=== PATIENT | male | born 2000 | race Caucasian/White ===

== ENCOUNTER 2018-11-14 23:56 | Emergency (ER) | payer BC ==
[2018-11-15 01:13] LABS: ABS Eosinophils 0.2 10^3/ul (0-0.6); ABS Lymphocytes 1.2 10^3/ul (1.0-4.8); ABS Monocytes 1.1 10^3/ul (0-0.8); ABS Neutrophils 11.1 10^3/ul (1.5-7.7); Eosinophil % 1.8 %; Hematocrit 46 % (42-52); Lymphocyte % 8.9 %; Mean Corpuscular HGB Conc 35 g/dL (31-36); Mean Corpuscular Hemoglobin 30 pg (27-31); Mean Corpuscular Volume 86 fL (80-94); Mean Platelet Volume 9.2 fL (7.4-10.4); Platelet Count 224 10^3/uL (150-450); Red Blood Count 5.27 10^6 /uL (4.18-5.48); Red Cell Distribution Width 13 % (10-15); White Blood Count 13.7 10^3/uL (3.5-10.8)
[2018-11-15 01:18] LABS: INR 1.24 (0.82-1.09)
--- NOTE | 2018-11-15 01:24 | ED ---
Complex/Multi-Sys Presentation - HPI Summary HPI Summary: Patient is a 17 y/o M presenting to ED with complaints of fever, sore throat, cough, headache, neck pain, shaking and chills. Sore throat onset two days ago, 11/12/2018, and progressively worsened after onset. Other Sx onset in the morning of 11/14/2018. Patient reports pain at the back of his neck. He additionally states that the sides of his neck have felt swollen. Some post nasal drip and rhinorrhea is endorsed as well. Patient took ibuprofen this morning, 11/14/2018, which he reports alleviated fever and shaking. Afterwards, he went to class. When he finished classes for the day, he states that Sx returned once more. Patient's grandfather, a doctor, advised the patient to come to the ED for evaluation. He states that JOHNS is "not bad now". Some nausea and decreased appetite are noted. Some SOB is reported as well, but patient attributes this to his asthma. Cough is occasionally productive. Patient had taken ibuprofen at 2230 11/14/18. On triage, pain is rated 3/10. Home medications and allergies are reviewed. - History Of Current Complaint Chief Complaint: EDFever Time Seen by Provider: 11/15/18 01:23 Hx Obtained From: Patient Onset/Duration: Lasting Hours - all Sx except sore throat, Lasting Days - sore throat, Still Present Timing: Constant, Hours - all Sx except sore throat, Days - sore throat Severity Currently: Mild Location: Pain At: - throat, head, neck Character: Typical Headache Aggravating Factor(s): nothing Alleviating Factor(s): nothing Associated Signs And Symptoms: Positive: Headache, SOB, Cough, Nausea, Fever, Other - positive - sore throat, neck pain, shaking, chills, side of neck feels swollen, post nasal drip, rhinorrhea, decreased appetite - Allergies/Home Medications Allergies/Adverse Reactions: Allergies Allergy/AdvReac Type Severity Reaction Status Date / Time No Known Allergies Allergy Verified 11/15/18 01:33 Home Medications: Home Medications Albuterol HFA INHALER* 2 inh INH Q4HR PRN 11/15/18 [History Confirmed 11/15/18] Symbicort 80/4.5 (NF) 2 inh INH BID 11/15/18 [History Confirmed 11/15/18] PMH/Surg Hx/FS Hx/Imm Hx Respiratory History: Reports: Hx Asthma Sensory History: Denies: Hx Legally Blind, Hx Deafness Opthamlomology History: Denies: Hx Legally Blind EENT History: Denies: Hx Deafness Infectious Disease History: No Infectious Disease History: Denies: Traveled Outside the [place] in Last 30 Days - Family History Known Family History: Negative: Cardiac Disease, Hypertension - Social History Alcohol Use: Rare Hx Substance Use: Yes Substance Use Type: Reports: Marijuana Review of Systems Constitutional: Other - positive - shaking Positive: Fever, Chills ENT: Other - post nasal drip Positive: Sore Throat, Nasal Discharge Positive: Shortness Of Breath, Cough Gastrointestinal: Other - positive - decreased appetite Positive: Nausea Musculoskeletal: Other - positive - neck pain Positive: Edema - sides of neck feel swollen Positive: Headache All Other Systems Reviewed And Are Negative: Yes Physical Exam - Summary Physical Exam Summary: Appearance: Well-appearing, Well-nourished, lying in bed comfortably Skin: Warm, dry, no obvious rash Eyes: sclera anicteric, no conjunctival pallor ENT: mucous membranes moist, pharynx appears normal Neck: Supple, nontender Respiratory: Clear to auscultation, no signs of respiratory distress Cardiovascular: Normal S1, S2. No murmurs. Normal distal pulses in tibial and radial bilaterally. Abdomen: Soft, nontender, normal active bowel sounds present Musculoskeletal: Normal, Strength/ROM Intact Neurological: A&Ox3, awake and alert, mentation is normal, speech is fluent and appropriate Psychiatric: affect is normal, does not appear anxious or depressed Triage Information Reviewed: Yes Vital Signs On Initial Exam: Initial Vitals Temp Pulse Resp BP Pulse Ox 101.5 F 114 20 129/82 98 11/14/18 23:57 11/14/18 23:57 11/14/18 23:57 11/14/18 23:57 11/14/18 23:57 Vital Signs Reviewed: Yes Diagnostics - Vital Signs Vital Signs Temp Pulse Resp BP Pulse Ox 11/14/18 23:57 101.5 F 114 20 129/82 98 - Laboratory Lab Results: Lab Results 11/15/18 11/15/18 Range/Units 01:06 01:06 WBC 13.7 H (3.5-10.8) 10^3/uL RBC 5.27 (4.18-5.48) 10^6 /uL Hgb 16.0 (14.0-18.0) g/dL Hct 46 (42-52) % MCV 86 (80-94) fL MCH 30 (27-31) pg MCHC 35 (31-36) g/dL RDW 13 (10-15) % Plt Count 224 (150-450) 10^3/uL MPV 9.2 (7.4-10.4) fL Neut % (Auto) 81.1 % Lymph % (Auto) 8.9 % [place] % (Auto) 8.0 % Eos % (Auto) 1.8 % Baso % (Auto) 0.2 % Absolute Neuts (auto) 11.1 H (1.5-7.7) 10^3/ul Absolute Lymphs (auto) 1.2 (1.0-4.8) 10^3/ul Absolute Monos (auto) 1.1 H (0-0.8) 10^3/ul Absolute Eos (auto) 0.2 (0-0.6) 10^3/ul Absolute Basos (auto) 0.0 (0-0.2) 10^3/ul Absolute Nucleated RBC 0.0 10^3/ul Nucleated RBC % 0.0 INR (Anticoag Therapy) 1.24 H (0.82-1.09) Result Diagrams: 11/15/18 01:06 11/15/18 01:06 Lab Statement: Any lab studies that have been ordered have been reviewed, and results considered in the medical decision making process. - Radiology CXR Radiology Interpretation Completed By: ED Physician Summary of Radiographic Findings: No acute process, pending official report. Complex Multi-Symp Course/Dx Course Of Treatment: Patient is a 17 y/o M presenting to ED with complaints of fever, sore throat, cough, headache, neck pain, shaking and chills. Sore throat onset two days ago, 11/12/2018, and progressively worsened after onset. Other Sx onset in the morning of 11/14/2018. Patient reports pain at the back of his neck. He additionally states that the sides of his neck have felt swollen. Some post nasal drip and rhinorrhea is endorsed as well. Patient took ibuprofen this morning, 11/14/2018, which he reports alleviated fever and shaking. Afterwards, he went to class. When he finished classes for the day, he states that Sx returned once more. Patient's grandfather, a doctor, advised the patient to come to the ED for evaluation. He states that JOHNS is "not bad now". Some nausea and decreased appetite are noted. Some SOB is reported as well, but patient attributes this to his asthma. Cough is occasionally productive. Patient had taken ibuprofen at 2230 11/14/18. Physical exam is unremarkable. CXR showed no acute process. Bloodwork was obtained, abnormal labs include WBC 13.7, absolute neuts 11.1, absolute monos 1.1, INR 1.24, glucose 110, calcium 10.4, total bilirubin 1.7. Monoscreen was negative, group a strep rapid negative. Results of labs and tests were discussed with the patient, he will be discharged to home. Patient was advised to take Motrin/Tylenol and cough medications to treat Sx. He was advised to get recheck if Sx persist ten days from now. He is agreeable with this plan. - Diagnoses Provider Diagnoses: Fever, URI (upper respiratory infection) Discharge ED - Sign-Out/Discharge Documenting (check all that apply): Patient Departure - discharge Patient Received Moderate/Deep Sedation with Procedure: No - Discharge Plan Condition: Stable Disposition: HOME Patient Education Materials: Fever in Adults (ED), Upper Respiratory Infection (ED) Referrals: [facility] [Outside] - 1 Week (if not improving) Additional Instructions: Your blood work was abnormal in a few respects. Your white blood cell count was slightly high, which is to be expected when your body is fighting an infection. Also your bilirubin was slightly elevated, and a test measuring blood clotting was slightly high - both of these could speak to some irritation in your liver, which can often be seen with viral infections like mononucleosis. The chest xray was clear, I do not see any sign of infection in the lungs. So for right now I suspect you have a viral upper respiratory infection, perhaps mono, though at this point it is too early to say with certainty. The mono test was negative, but that can take at least a week to become abnormal. For right now I would treat this illness symptomatically, with motrin and/or tylenol for fever, and over the counter cough medications. Infections like this usually last a week or two. As long as you are not worsening, stay home and rest. You can go back to class when your fever breaks, i.e. no fever for 24 hours. If you are not starting to improve after a week to 10 days, check in with your [facility]. They may want to recheck your mono test. I would not recommend an antibiotic at this point, but if you are worsening we should see you back here for a recheck. - Billing Disposition and Condition Condition: STABLE Disposition: Home - Attestation Statements Document Initiated by Aj: Yes Documenting Hollyibe: NIURKA WATKINS Provider For Whom Aj is Documenting (Include Credential): GIOVANNI URIAS MD Scribe Attestation: I, NIURKA WATKINS, scribed for GIOVANNI URIAS MD on 11/16/18 at 0520. Hollyibsherlyn Documentation Reviewed: Yes Provider Attestation: The documentation as recorded by the NIURKA araya accurately reflects the service I personally performed and the decisions made by me, GIOVANNI URIAS MD Status of Scribe Document: Viewed
[2018-11-15 01:30] LABS: Albumin 4.9 g/dL (3.2-5.2); BUN/Creatinine Ratio 10.8 (8-20); Calcium 10.4 mg/dL (8.6-10.3); EGFR African American 126.6 (>60); EGFR Non-African American 104.7 (>60); Globulin 2.4 g/dL (2-4); Potassium 3.7 mmol/L (3.5-5.0); Total Bilirubin 1.7 mg/dL (0.2-1.0); Total Protein 7.3 g/dL (6.4-8.9)
[2018-11-15 01:53] LABS: Rapid Strep Molecular Negative (Negative)
[2018-11-15 02:22] VITALS: BP 103/72
== END 2018-11-15 02:26 | disposition home or self-care (01) ==
LOC: ED 23:56
DX: J06.9 Acute upper respiratory infection, unspecified (principal); J45.909 Unspecified asthma, uncomplicated; Z79.899 Other long term (current) drug therapy; R06.02 Shortness of breath
CPT/HCPCS: 36415; 71045; 80053; 83605; 85025; 85610; 86308; 87040; 87651; 99283